=== PATIENT | male | born 2000 | race Caucasian/White ===

== ENCOUNTER 2023-10-06 16:59 | Emergency (ER) | payer OTHER, SELFPAY ==
--- NOTE | 2023-10-06 17:10 | PC.NURSE ---
patient awake/not speaking to staff/seems unable to respond to questions, security and PD at bedside for exchange architect, PD states they believe his first name was Ramin but is unsure of last name. Pt placed in green psych attire, vitals obtained, registered nurse cardiac applied, will obtain information as the patient gives it
[2023-10-06 17:15] VITALS: BP 170/96; PULSE 111; RESP 20; TEMP 36.8; O2SAT 95; BMI 23.8
--- NOTE | 2023-10-06 17:19 | ECG_ITS ---
Test Reason : OVERDOSE Blood Pressure : / mmHG Vent. Rate : 100 BPM Atrial Rate : 100 BPM P-R Int : 154 ms QRS Dur : 088 ms QT Int : 348 ms P-R-T Axes : 069 068 033 degrees QTc Int : 448 ms Normal sinus rhythm Normal ECG No previous ECGs available Referred By: Jonathan Pena Electronically Signed By:BONIFACIO GAMBLE MD
--- NOTE | 2023-10-06 17:39 | ED.GENADULT ---
HPI - General Adult General Chief complaint: ETOH/Substance Use Stated complaint: substance abuse,pd on board Time Seen by Provider: 10/06/23 17:01 Source: patient, RN notes reviewed and police Mode of arrival: EMS Limitations: altered mental status History of Present Illness HPI narrative: This is approximately 26-year-old male presenting for evaluation of reported substance abuse. The patient did not have an ID on him when he was picked up by EMS/police He has been unwilling to provide his name thus far Apparently he was with a friend and that individual reported the patient was smoking marijuana laced with PCP The patient was screaming in the streets He was talking about being abducted by aliens On arrival to the ED, the patient is awake, alert but he is not answering any questions He is following commands to get change in to the hospital gown He has no signs of trauma to the body His vital signs are stable on arrival Related Data Allergies Allergy/AdvReac Type Severity Reaction Status Date / Time Unable to Assess Allergy Verified 10/06/23 17:15 Review of Systems Review of Systems: Patient not cooperative with review of systems Physical Exam ED Vital Signs: Vital Signs - 24 hr 10/06/23 17:15 Temperature 98.2 F Pulse Rate 111 H Respiratory Rate 20 Blood Pressure 170/96 H Pulse Oximetry 95 Oxygen Delivery Method Room Air BMI result Body Mass Index 23.8 Const General: healthy appearing, comfortable, no acute distress, well developed and awake; No cooperative HENMT Head: Yes normal to inspection, Yes No palpable skull fracture present, Yes normocephalic and Yes atraumatic Ears: external ears normal Eyes General: appearance normal, both eyes and all related structures Alignment and Position: alignment normal Periorbital: periorbital findings normal Eyelids: Yes eyelids normal Conjunctivae: conjunctivae normal Pupils: Equal, round and reactive pupils present EOM: Nystagmus present Neck Other: No C-spine tenderness Chest Chest palpation & inspection: normal inspection of the chest Resp Effort & Inspection: normal respiratory effort Cardio Rate: regular rate Rhythm: regular rhythm GI Palpation (GI): nontender and no guarding Skin General skin exam: no rashes or lesions noted Neuro Cranial nerves: Yes Equal, round and reactive pupils present and Yes Nystagmus present Gait exam (Neuro): Normal gait present Psych Appearance: grossly normal Affect: Blunted affect present Attitude: Refuses to answer (attititude/behavior) Course Reevaluation(s) Reevaluation #1: Patient reported to spice blender that his name is Bernardo Adams and that he is 24 years old Time: 17:44 Reevaluation #2: Patient now sitting up awake alert oriented, he reports that he does not work coming in but admits to smoking marijuana laced with PCP earlier. He complains of left hand pain because he reports he punched a wall. He reports pain to the left 3rd and 4th MCP joint. He has no significant edema or tenderness to the area. He has full range of motion of flexion-extension left hand and wrist. Plan for x-ray of the left hand Time: 17:49 Reevaluation #3: Patient's mother and a friend present to the ER. I was given permission by the patient to speak with them. Explain to his mother and friend why the patient was brought to the hospital and the patient admits to using drugs including marijuana and PCP. His medical workup was reassuring. Still awaiting a tox screen which he has not provided. However in the ER, the patient has been awake, alert oriented, he has been anxious and trying to leave however he has not been physically combative or confused. He has not had any paranoia since presenting to the ED. he is stable for discharge into the custody of his mother Time: 19:01 Medical Decision Making Medical Decision Making MDM Narrative: Apparently 24-year-old male presenting for evaluation of substance abuse. The patient was refused to answer questions during my evaluation. He was able to answer some questions for it field technician staff, is able to stand up with a steady, even gait. Plan for basic labs, EKG, drug screen and observation. There are no signs trauma in the patient does not appear to have any neuro deficits, so we will hold any imaging of the brain at this time Differential Diagnosis Differential Diagnoses: The differential diagnosis associated with the presentation includes Substance abuse Polysubstance abuse Psychosis Catatonia Bipolar disorder Schizophrenia Lab Data 10/06/23 18:07 10/06/23 18:07 Labs: Lab Results 10/06/23 Range/Units 18:07 WBC 9.5 (4.8-10.8) X10*3/uL RBC 5.78 (4.60-5.80) X10*6/uL Hgb 17.1 (14.0-18.0) g/dl Hct 49.4 (42.0-52.0) % MCV 85.5 (80.0-98.0) fL MCH 29.6 (27.0-33.0) pg MCHC 34.6 (31.0-36.0) g/dl RDW 11.9 (11.0-16.0) % Plt Count 207 (160-400) X10*3/uL MPV 10.3 (9.4-12.4) fL Immature Gran % (Auto) 0.4 (0.0-0.4) % Neut % (Auto) 84.6 H (45-73) % Lymph % (Auto) 7.7 L (20-40) % [place] % (Auto) 4.9 (2-11) % Eos % (Auto) 1.4 (0-4) % Baso % (Auto) 1.0 (0-2) % Lymph # (Auto) 0.7 L (1.2-4.9) X10*3/uL [place] # (Auto) 0.5 (0.1-1.2) X10*3/uL Eos # (Auto) 0.1 (0.0-0.4) X10*3/uL Baso # (Auto) 0.1 (0.0-0.2) X10*3/uL Abs Immat Gran (auto) 0.04 H (0.00-0.03) X10*3/uL Absolute Neuts (auto) 8.0 (2.0-8.3) x10*3/uL Absolute Nucleated RBC 0.000 (0.0-0.012) X10*3/uL Nucleated RBC % (auto) 0.0 (0.0-0.2) /100WBC Sodium 143 (135-145) mmol/L Potassium 4.1 (3.3-5.1) mmol/L Chloride 108 (96-108) mmol/L Carbon Dioxide 25 (22-29) mmol/L Anion Gap 14 (12-20) BUN 18 H (9-16) mg/dL Creatinine 1.13 (0.5-1.4) mg/dL Estim Creat Clear Calc 98.6 Estimated GFR > 60 Random Glucose 101 (60-115) mg/dL Calcium 10.4 H (8.4-10.2) mg/dL Total Bilirubin 0.9 (0.0-1.0) mg/dL AST 18 (5-37) U/L ALT 15 (0-40) U/L Alkaline Phosphatase 71 (39-117) U/L Total Protein 7.8 (6.5-8.0) g/dL Albumin 4.7 (3.5-5.0) g/dL Salicylates < 5.0 L (15-30) mg/dL Acetaminophen < 3 (<30) mcg/mL Ethyl Alcohol < 10 mg/dL Discharge Plan Discharge Clinical Impression: Drug-induced psychotic disorder Patient Disposition: Home, Self-Care Instructions: Polysubstance Abuse (ED) Additional Instructions: Do not use illicit substances Follow-up with your primary doctor
[2023-10-06 18:14] LABS: MANUAL DIFF FLAG NO
[2023-10-06 18:25] LABS: Basophils Absolute Auto 0.1 X10*3/uL (0.0-0.2); Eosinophils Absolute Auto 0.1 X10*3/uL (0.0-0.4); Eosinophils Percent Auto 1.4 % (0-4); Hematocrit 49.4 % (42.0-52.0); Hemoglobin 17.1 g/dl (14.0-18.0); Imm Gran Abs Auto 0.04 X10*3/uL (0.00-0.03); Imm Gran Pct Auto 0.4 % (0.0-0.4); Lymphocytes Absolute Auto 0.7 X10*3/uL (1.2-4.9); Lymphocytes Percent Auto 7.7 % (20-40); Mean Corpuscular HGB Conc 34.6 g/dl (31.0-36.0); Mean Corpuscular Hemoglobin 29.6 pg (27.0-33.0); Mean Corpuscular Volume 85.5 fL (80.0-98.0); Mean Platelet Volume 10.3 fL (9.4-12.4); Monocytes Absolute Auto 0.5 X10*3/uL (0.1-1.2); Monocytes Percent Auto 4.9 % (2-11); Neutrophils Percent Auto 84.6 % (45-73); Platelet Count 207 X10*3/uL (160-400); Red Blood Count 5.78 X10*6/uL (4.60-5.80); Red Cell Distribution Width 11.9 % (11.0-16.0); White Blood Count 9.5 X10*3/uL (4.8-10.8)
--- NOTE | 2023-10-06 18:28 | PC.NURSE ---
patient is awake/talking and agitated, pt continues to leave room and stating hes going to escape- he was found numerous times in another patients room, he was redirected back to his room. this nurse asked charge for a sitter which isnt available at this time, security at bedside assisting with the patient
[2023-10-06 18:43] LABS: Alanine Aminotransferase 15 U/L (0-40); Albumin Level 4.7 g/dL (3.5-5.0); Alkaline Phosphatase 71 U/L (39-117); Anion Gap 14 (12-20); Aspartate Amino Transferase 18 U/L (5-37); Bilirubin Total 0.9 mg/dL (0.0-1.0); Blood Urea Nitrogen 18 mg/dL (9-16); Calcium 10.4 mg/dL (8.4-10.2); Carbon Dioxide 25 mmol/L (22-29); Chloride 108 mmol/L (96-108); Creatinine Clr Calc Pharmacy 98.6; Estimated Glomerular Filt Rate > 60; Ethanol < 10 mg/dL; Glucose Random 101 mg/dL (60-115); Potassium 4.1 mmol/L (3.3-5.1); Sodium 143 mmol/L (135-145); Total Protein 7.8 g/dL (6.5-8.0)
[2023-10-06 18:49] LABS: Acetaminophen LAB < 3 mcg/mL (<30); Salicylate < 5.0 mg/dL (15-30)
== END 2023-10-06 19:12 | disposition home or self-care (01) ==
LOC: HO.ED 19:06
PROVIDERS: Physician Assistant; Emergency Provider Internal Medicine
DX: F19.159 Other psychoactive substance abuse with psychoactive substance-induced psychotic disorder, unspecified (principal); R45.1 Restlessness and agitation; M79.642 Pain in left hand
CPT/HCPCS: 36415; 80053; 80143; 80179; 80307; 85025; 93005; 99284

== ENCOUNTER → 2023-10-06 17:19 | Outpatient (BNV) | payer OTHER, SELFPAY | PROVIDERS: Emergency Provider Internal Medicine; Visit Provider Internal Medicine Cardiovascular Disease | DX: R41.82 Altered mental status, unspecified (principal) | CPT/HCPCS: 93010 ==